=== PATIENT | male | born 1965 | race Caucasian/White ===

== ENCOUNTER 2024-06-14 03:38 | Emergency (ER) | payer BC ==
[2024-06-14] MEDS: predniSONE 20 MG Tab PO ONE (04:10)
[2024-06-14] MEDS: Amoxicillin 500 MG Cap PO ONE (04:10)
== END 2024-06-14 04:24 | disposition home or self-care (01) ==
LOC: KA.ED 03:38
DX: J02.9 Acute pharyngitis, unspecified (principal); Z79.899 Other long term (current) drug therapy; Z88.8 Allergy status to other drugs, medicaments and biological substances
CPT/HCPCS: 87651; 99283; A9270; J7512